=== PATIENT | male | born 1990 | race Caucasian/White ===

== ENCOUNTER 2017-02-05 19:54 | Emergency (ER) | payer SELFPAY ==
[2017-02-05] MEDS ORDERED: Morphine INJ* 2 MG/ML 1 ML SYRINGE IV ONE (21:27)
[2017-02-05] MEDS ORDERED: NS 0.9% 1000 ML* 1,000 ML IV ONE (21:27)
[2017-02-05] MEDS ORDERED: Metoclopramide IV* 5 MG/ML 2 ML VIAL IV ONE (21:29)
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
[2017-02-05 22:50] LABS: ALT 54 U/L (7-52); Albumin 3.5 g/dL (3.2-5.2); Alkaline Phosphatase 333 U/L (34-104); BUN/Creatinine Ratio 17.4 (8-20); Blood Urea Nitrogen 12 mg/dL (6-24); C Reactive Protein 3.52 mg/L (< 5.00); CO2 Carbon Dioxide 28 mmol/L (22-32); Chloride 98 mmol/L (101-111); EGFR African American 181.2 (>60); EGFR Non-African American 140.9 (>60); Globulin 3.8 g/dL (2-4); Glucose 102 mg/dL (70-100); Lipase < 10 U/L (11.0-82.0); Sodium 132 mmol/L (133-145); Total Protein 7.3 g/dL (6.4-8.9)
[2017-02-05 23:03] LABS: AST 32 U/L (13-39); Anion Gap 6 mmol/L (2-11); Potassium 4.3 mmol/L (3.5-5.0)
[2017-02-05] MEDS ORDERED: Ondansetron ODT TAB* 4 MG PO ONE (23:08)
[2017-02-05] MEDS ORDERED: Metoclopramide IV* 5 MG/ML 2 ML VIAL ONE (23:33)
[2017-02-05] MEDS ORDERED: Morphine INJ* 10 MG/ML 1 ML SYRINGE SUBCUT ONE (23:33)
[2017-02-06 00:31] LABS: Hematocrit 32 % (42-52); Hemoglobin 9.9 g/dl (14.0-18.0); Mean Corpuscular HGB Conc 31 g/dl (31-36); Mean Corpuscular Hemoglobin 19 pg (27-31); Mean Corpuscular Volume 63 fL (80-94); Mean Platelet Volume 9 um3 (7.4-10.4); Red Blood Count 5.08 10^6/ul (4.0-5.4); Red Cell Distribution Width 18 % (10.5-15); White Blood Count 18.9 10^3/ul (3.5-10.8)
[2017-02-06 00:34] LABS: Add Diff/Slide Review? Slide Review Added; Comments Flag Yes
[2017-02-06] MEDS ORDERED: oxyCODONE/Acetamin 5/325 MG* TAB PO ONE (02:51)
[2017-02-06] MEDS ORDERED: Prochlorperazine SUPP* 25 MG SUPP PR ONE (02:51)
[2017-02-06 03:14] VITALS: BP 135/79
--- NOTE | 2017-02-06 08:10 | RAD ---
CLINICAL HISTORY: Diffuse abdominal pain in a patient with a history of Crohn's disease. COMPARISON: None TECHNIQUE: Noncontrast CT examination of the abdomen and pelvis from the lung bases through the initial tuberosities. FINDINGS: VISUALIZED LUNG BASES: Evaluation of the lung is limited by respiratory motion artifact. The lungs appear hyperaerated. At the visualized lower lingula of the left upper lobe there is patchy nodular density (image 4 of 93). There is no large pleural effusion. ABDOMEN AND PELVIS: Evaluation of the solid organs and vasculature is limited without intravenous contrast. The homogenously attenuating spleen is mildly enlarged measuring 13 cm and greatest cephalocaudal projection. The liver, pancreas and adrenal glands are grossly normal in appearance. The gallbladder is normal. At least one punctate calcification is noted in the right renal collecting system. There are are no signs of hydronephrosis. There is questionable thickening of the gastric wall (for example axial image 17). In the left upper quadrant there are top normal dilated loops of small bowel measuring up to 2.6 cm in diameter (image [id number]). In this same area there are air-fluid levels. There is no definite pathologic wall thickening, although this is difficult to discern the absence of oral contrast. Scattered enlarged mesenteric lymph nodes measuring up to 1 cm in short axis diameter (image 46 on the coronal images). There are no pathologically enlarged retroperitoneal lymph nodes. Surgical clips are noted in the right lower quadrant in the expected location of the appendix and at the midline mesenteric root. The pelvic viscera is normal in appearance. The abdominal aorta and iliac arteries are normal in course and diameter. There are no sinister bone lesions. IMPRESSION: 1. Evaluation of the gastrointestinal tract is limited without oral or IV contrast. There appears to be signs of gastroenteritis involving the stomach and proximal small bowel. 2. Patchy nodular infiltrate at the visualized portion of the left upper lobe lingula could represent inflammatory or infectious disease. 3. Additional nonacute-appearing and postoperative findings as described by the report.
== END 2017-02-06 03:15 | disposition home or self-care (01) ==
LOC: ED 19:54
DX: R10.12 Left upper quadrant pain (principal); R11.2 Nausea with vomiting, unspecified
CPT/HCPCS: 36415; 74176; 80053; 83690; 85025; 86140; 99285; A9270-GY; J2270

== ENCOUNTER 2017-06-23 11:43 | Emergency (ER) | payer OTHER ==
[2017-06-23] MEDS ORDERED: LORazepam INJ* 2 MG/ML 1 ML VIAL ONE (12:14)
[2017-06-23] MEDS ORDERED: LORazepam INJ* 2 MG/ML 1 ML VIAL IV PUSH ONE (12:36)
[2017-06-23] MEDS ORDERED: PROCHLORPERAZINE INJ 5 MG/ML 2 ML VIAL IV PRN (12:40)
[2017-06-23] MEDS ORDERED: PROCHLORPERAZINE INJ 5 MG/ML 2 ML VIAL ONE (12:47)
[2017-06-23 12:48] LABS: Hematocrit 37 % (42-52); Hemoglobin 12.5 g/dl (14.0-18.0); Mean Corpuscular HGB Conc 33 g/dl (31-36); Mean Corpuscular Hemoglobin 26 pg (27-31); Mean Corpuscular Volume 79 fL (80-94); Mean Platelet Volume 7 um3 (7.4-10.4); Red Blood Count 4.77 10^6/ul (4.0-5.4); Red Cell Distribution Width 16 % (10.5-15); White Blood Count 12.7 10^3/ul (3.5-10.8)
[2017-06-23 13:09] LABS: Albumin 3.7 g/dL (3.2-5.2); BUN/Creatinine Ratio 14.6 (8-20); Calcium 9.2 mg/dL (8.6-10.3); EGFR African American 147.2 (>60); EGFR Non-African American 114.5 (>60); Globulin 4.7 g/dL (2-4); Magnesium 1.9 mg/dL (1.9-2.7); Total Protein 8.4 g/dL (6.4-8.9)
[2017-06-23 13:41] LABS: TSH (Thyroid Stimulating Horm) 0.3 mcIU/mL (0.34-5.60)
[2017-06-23] MEDS ORDERED: KCL 20 MEQ/100 ML IVPREMIX* 20 MEQ/100 ML BAG IV ONE (14:21)
[2017-06-23 17:01] LABS: Urine Bacteria Absent (Absent); Urine Bilirubin Negative (Negative); Urine Glucose Negative (Negative); Urine Nitrite Negative (Negative)
[2017-06-23 17:11] LABS: Benzodiazepine Urine Screen Presumptive Positive (None Detect)
--- NOTE | 2017-06-23 17:40 | RAD ---
Indication: Cough. 2 views of the chest are reviewed. Emphysematous changes are noted. There is suggestion of some interstitial and alveolar densities in the right upper lobe and left lower lobe. No pleural fluid is identified. IMPRESSION: There appears to BE infiltrates in the right upper lobe and left base.
[2017-06-23] MEDS ORDERED: Meropenem 1 GM PREMIX(*) 1 GM/50 ML BAG IV ONE ×2 (18:12→19:23)
[2017-06-23] MEDS ORDERED: Azithromycin IV(*) 500 MG in NS 0.9% 250 ML* 250 ML IVPB ONE (18:12)
[2017-06-23] MEDS ORDERED: Clindamycin 600 MG IVPREMIX(* 600 MG/50 ML SDV IV ONE (18:14)
[2017-06-23] MEDS ORDERED: HYDROmorphone* 1 MG/ML 1 ML SYR IV SLOW PU ONE (19:04)
[2017-06-23] MEDS ORDERED: Aztreonam (*) 1 GM in NS 0.9% 50 ML* 50 ML IVPB ONE (19:24)
--- NOTE | 2017-06-23 19:51 | ED ---
Fatimah De La Garza Alfonso, scribed for Cuauhtemoc Preston MD on 06/23/17 at 1231 . Complex/Multi-Sys Presentation - HPI Summary HPI Summary: This patient is a 27 year old M BIBA from [facility] to [facility] from with a chief complaint of seizures since last night. Per medical record, he had approximately 6 seizures [employer]. Symptoms alleviated by versed 5 mg IM in ambulance. Pt having a seizure at time of evaluation. He possibly missed a recent dose of Levetiracetam. PMHx includes cystic fibrosis, and seizures. - History Of Current Complaint Chief Complaint: EDSeizure Time Seen by Provider: 06/23/17 11:50 Hx Obtained From: Patient, Medical Records Onset/Duration: Sudden Onset, Lasting Hours - Last night, Still Present Timing: Constant Severity Currently: Moderate Severity Initially: Moderate Alleviating Factor(s): versed 5 mg IM in ambulance Associated Signs And Symptoms: Positive: Other - Seizure. Related History: Similar Episode/Diagnosed As: - Seizure disorder. - Allergies/Home Medications Allergies/Adverse Reactions: Allergies Allergy/AdvReac Type Severity Reaction Status Date / Time NSAIDs Allergy Severe Airway Verified 02/05/17 20:07 Obstruction Ondansetron [From Zofran] Allergy Severe Airway Verified 02/05/17 20:07 Obstruction Adhesive Tape Allergy Mild Hives Verified 02/05/17 20:07 Cefepime Allergy Mild Hives Verified 02/05/17 20:07 Cephalosporins Allergy Mild Hives Verified 02/05/17 20:07 Levofloxacin [From Levaquin] Allergy Mild Hives Verified 02/05/17 20:07 Piperacillin [From Zosyn] Allergy Mild Hives Verified 02/05/17 20:07 Tazobactam [From Zosyn] Allergy Mild Hives Verified 02/05/17 20:07 Home Medications: Home Medications Albuterol HFA INHALER* [Ventolin HFA Inhaler*] 2 puff INH Q4H PRN 06/23/17 [ History Confirmed 06/23/17] Buprenorphine/Naloxone SL TAB* [Suboxone 8-2 mg SL TAB*] 1 tab.sl SL BID [History Confirmed 06/23/17] Dornase Alexander (Nf) [Pulmozyme (NF)] 1 mg INH DAILY 06/23/17 [History Confirmed ] Fluticasone-Salmeterol 500-50* [Advair Diskus 500-50*] 1 puff INH BID 06/23/17 [ History Confirmed 06/23/17] Gabapentin TAB(NF) [Neurontin 600 mg TAB(NF)] 1,200 mg PO TID 06/23/17 [History Confirmed 06/23/17] Levetiracetam [Keppra 500] 1,000 mg PO BID 06/23/17 [History Confirmed 06/23/17] Mirtazapine TAB* [Remeron TAB*] 30 mg PO BEDTIME 06/23/17 [History Confirmed 11/08] Mometasone NASAL (NF) [Nasonex (NF)] 2 spray BOTH NARES DAILY 06/23/17 [History Confirmed 06/23/17] Multivitamins/Minerals TAB* [Theragran/minerals TAB*] 1 tab PO DAILY 06/23/17 [ History Confirmed 06/23/17] Naproxen [Naproxen 500 mg] 500 mg PO BID 06/23/17 [History Confirmed 06/23/17] Omeprazole CAP* [Prilosec CAP* 20 MG] 20 mg PO DAILY 06/23/17 [History Confirmed 06/23/17] PARoxetine HCL TAB* [Paxil TAB*] 20 mg PO QAM 06/23/17 [History Confirmed ] Pancrelipase (NF) [Creon (NF)] 5 - 6 cap PO .WITH SNACKS 06/23/17 [History Confirmed 06/23/17] Pancrelipase (NF) [Creon (NF)] 8 cap PO TID WITH MEALS 06/23/17 [History Confirmed 06/23/17] Tobramycin 300 MG/5 ML INH(NF) [Jose(NF)] 300 mg INH BID 06/23/17 [History Confirmed 06/23/17] traZODone TAB* [Desyrel TAB*] 200 mg PO BEDTIME PRN 06/23/17 [History Confirmed 06/23/17] PMH/Surg Hx/FS Hx/Imm Hx Respiratory History: Reports: Hx Cystic Fibrosis GI History: Reports: Hx Crohn's Disease Neurological History: Reports: Hx Seizures - Cancer History Cancer Type, Location and Year: PANCREATIC CA - Surgical History Surgery Procedure, Year, and Place: APPENDECTOMY & PER PT. 3/4 OF COLON REMOVED @ SAME TIME 2004 Infectious Disease History: No Infectious Disease History: Denies: Traveled Outside the US in Last 30 Days - Family History Known Family History: Positive: Other - Mother -- HLD - Social History Alcohol Use: None Hx Substance Use: Yes Substance Use Type: Reports: Marijuana Hx Tobacco Use: Yes Smoking Status (MU): Former Smoker Review of Systems Negative: Fever Neurological: Other - Seizures All Other Systems Reviewed And Are Negative: Yes Physical Exam Triage Information Reviewed: Yes Vital Signs On Initial Exam: Initial Vitals Temp Pulse Resp BP Pulse Ox 99.1 F 121 26 120/74 95 06/23/17 11:51 06/23/17 11:51 06/23/17 11:51 06/23/17 11:51 06/23/17 11:51 Vital Signs Reviewed: Yes Appearance: Positive: Well-Appearing, No Pain Distress Skin: Positive: Warm, Skin Color Reflects Adequate Perfusion, Dry Head/Face: Positive: Normal Head/Face Inspection Eyes: Positive: Normal ENT: Positive: Normal ENT inspection Neck: Positive: Supple, Nontender Respiratory/Lung Sounds: Positive: Other - Course wet cough. Course upper respiratory sounds bilaterally. Cardiovascular: Positive: Tachycardia Abdomen Description: Positive: Nontender, Soft Bowel Sounds: Positive: Present Musculoskeletal: Positive: Normal Neurological: Positive: Normal, Sensory/Motor Intact, Alert, Oriented to Person Place, Time, CN Intact II-III Psychiatric: Positive: Affect/Mood Appropriate Diagnostics - Vital Signs Vital Signs Temp Pulse Resp BP Pulse Ox 06/23/17 11:51 99.1 F 121 26 120/74 95 - Laboratory Lab Results: Lab Results 06/23/17 06/23/17 06/23/17 Range/Units 12:31 12:31 12:31 WBC 12.7 H (3.5-10.8) 10^3/ul RBC 4.77 (4.0-5.4) 10^6/ul Hgb 12.5 L (14.0-18.0) g/dl Hct 37 L (42-52) % MCV 79 L (80-94) fL MCH 26 L (27-31) pg MCHC 33 (31-36) g/dl RDW 16 H (10.5-15) % Plt Count 427 (150-450) 10^3/ul MPV 7 L (7.4-10.4) um3 Neut % (Auto) 74.5 (38-83) % Lymph % (Auto) 14.5 L (25-47) % Coke % (Auto) 10.0 H (1-9) % Eos % (Auto) 0.5 (0-6) % Baso % (Auto) 0.5 (0-2) % Absolute Neuts (auto) 9.5 H (1.5-7.7) 10^3/ul Absolute Lymphs (auto) 1.8 (1.0-4.8) 10^3/ul Absolute Monos (auto) 1.3 H (0-0.8) 10^3/ul Absolute Eos (auto) 0.1 (0-0.6) 10^3/ul Absolute Basos (auto) 0.1 (0-0.2) 10^3/ul Absolute Nucleated RBC 0 10^3/ul Nucleated RBC % 0 INR (Anticoag Therapy) 1.14 H (0.89-1.11) Sodium 131 L (133-145) mmol/L Potassium 3.0 L (3.5-5.0) mmol/L Chloride 94 L (101-111) mmol/L Carbon Dioxide 28 (22-32) mmol/L Anion Gap 9 (2-11) mmol/L BUN 12 (6-24) mg/dL Creatinine 0.82 (0.67-1.17) mg/dL Est GFR ( Amer) 147.2 (>60) Est GFR (Non-Af Amer) 114.5 (>60) BUN/Creatinine Ratio 14.6 (8-20) Glucose 80 (70-100) mg/dL Lactic Acid (0.5-2.0) mmol/L Calcium 9.2 (8.6-10.3) mg/dL Magnesium 1.9 (1.9-2.7) mg/dL Total Bilirubin 1.00 (0.2-1.0) mg/dL AST 95 H (13-39) U/L ALT 214 H (7-52) U/L Alkaline Phosphatase 513 H (34-104) U/L Total Creatine Kinase 51 (10-223) U/L Total Protein 8.4 (6.4-8.9) g/dL Albumin 3.7 (3.2-5.2) g/dL Globulin 4.7 H (2-4) g/dL Albumin/Globulin Ratio 0.8 L (1-3) TSH 0.30 L (0.34-5.60) mcIU/mL Urine Color Urine Appearance Urine pH (5-9) Ur Specific Pullman (1.010-1.030) Urine Protein (Negative) Urine Ketones (Negative) Urine Blood (Negative) Urine Nitrate (Negative) Urine Bilirubin (Negative) Urine Urobilinogen (Negative) Ur Leukocyte Esterase (Negative) Urine WBC (Auto) (Absent) Urine RBC (Auto) (Absent) Ur Squamous Epith Cells (Absent) Urine Bacteria (Absent) Urine Glucose (Negative) Urine Opiates Screen (None Detect) Ur Barbiturates Screen (None Detect) Ur Phencyclidine Scrn (None Detect) Ur Amphetamines Screen (None Detect) U Benzodiazepines Scrn (None Detect) Urine Cocaine Screen (None Detect) U Cannabinoids Screen (None Detect) 06/23/17 06/23/17 06/23/17 Range/Units 12:31 16:45 16:45 WBC (3.5-10.8) 10^3/ul RBC (4.0-5.4) 10^6/ul Hgb (14.0-18.0) g/dl Hct (42-52) % MCV (80-94) fL MCH (27-31) pg MCHC (31-36) g/dl RDW (10.5-15) % Plt Count (150-450) 10^3/ul MPV (7.4-10.4) um3 Neut % (Auto) (38-83) % Lymph % (Auto) (25-47) % Coke % (Auto) (1-9) % Eos % (Auto) (0-6) % Baso % (Auto) (0-2) % Absolute Neuts (auto) (1.5-7.7) 10^3/ul Absolute Lymphs (auto) (1.0-4.8) 10^3/ul Absolute Monos (auto) (0-0.8) 10^3/ul Absolute Eos (auto) (0-0.6) 10^3/ul Absolute Basos (auto) (0-0.2) 10^3/ul Absolute Nucleated RBC 10^3/ul Nucleated RBC % INR (Anticoag Therapy) (0.89-1.11) Sodium (133-145) mmol/L Potassium (3.5-5.0) mmol/L Chloride (101-111) mmol/L Carbon Dioxide (22-32) mmol/L Anion Gap (2-11) mmol/L BUN (6-24) mg/dL Creatinine (0.67-1.17) mg/dL Est GFR ( Amer) (>60) Est GFR (Non-Af Amer) (>60) BUN/Creatinine Ratio (8-20) Glucose (70-100) mg/dL Lactic Acid 1.8 (0.5-2.0) mmol/L Calcium (8.6-10.3) mg/dL Magnesium (1.9-2.7) mg/dL Total Bilirubin (0.2-1.0) mg/dL AST (13-39) U/L ALT (7-52) U/L Alkaline Phosphatase (34-104) U/L Total Creatine Kinase (10-223) U/L Total Protein (6.4-8.9) g/dL Albumin (3.2-5.2) g/dL Globulin (2-4) g/dL Albumin/Globulin Ratio (1-3) TSH (0.34-5.60) mcIU/mL Urine Color Linnette Urine Appearance Cloudy Urine pH 6.0 (5-9) Ur Specific Pullman 1.020 (1.010-1.030) Urine Protein 1+(30 mg/dl) H (Negative) Urine Ketones Trace H (Negative) Urine Blood Negative (Negative) Urine Nitrate Negative (Negative) Urine Bilirubin Negative (Negative) Urine Urobilinogen Negative (Negative) Ur Leukocyte Esterase Negative (Negative) Urine WBC (Auto) 1+(6-10/hpf) H (Absent) Urine RBC (Auto) Absent (Absent) Ur Squamous Epith Cells Present H (Absent) Urine Bacteria Absent (Absent) Urine Glucose Negative (Negative) Urine Opiates Screen None detected (None Detect) Ur Barbiturates Screen None detected (None Detect) Ur Phencyclidine Scrn None detected (None Detect) Ur Amphetamines Screen None detected (None Detect) U Benzodiazepines Scrn Presumptive positive H (None Detect) Urine Cocaine Screen Presumptive positive H (None Detect) U Cannabinoids Screen Presumptive positive H (None Detect) Result Diagrams: 06/23/17 12:31 06/23/17 12:31 Lab Statement: Any lab studies that have been ordered have been reviewed, and results considered in the medical decision making process. - Radiology CXR Radiology Interpretation Completed By: Radiologist - There appears to BE infiltrates in the right upper lobe and left base. ED physician has reviewed this radiology report and agrees. - EKG 1240 Cardiac Rate: Tachycardia - BPM 119 EKG Rhythm: Sinus Tachycardia ST Segment: Non-Specific Complex Multi-Symp Course/Dx Course Of Treatment: Mr. Crenshaw was brought in by the police. He had had a seizure last night and signed off from the ambulance but the police noticed that he had an outstanding warrant from [place] and took him into custody. He thinks that he missed 2 -3 doses of his Keppra 1000 mgs BID. He reportedly had 5-6 more seizures during the course of today and was brought in. Here he had a very convincing-looking generalized tonic-clonic seizure without elevation of his lactate or CPK, slight WBC elevation and no significant post-ictal period. He was seen By Dr. rUibe for neurology who felt that he should be loaded with Keppra and go home if he continued to remain seizure-free. He did so, however he continued to be tachycardic and began to C/O a cough and a CXR was read as bilateral infiltrates. He was loaded with azithromax, meropenem and aztreonam as well as NS. Dr. Love in [facility] agreed to the transfer as we have no pulmonology backup here this weekend. - Diagnoses Provider Diagnoses: Pneumonia, Sepsis, Breakthrough seizure - Physician Notifications Time Discussed With Above Provider: 12:25 Instructed by Provider To: Other - Consulted Dr. Uribe (neurology) who will see the patient in the ED. Consulted Dr. Chen (hospitalist) who accepts the patient for admission. Consulted Dr. Munson (ICU [facility]) who agrees to admit the transfer. - Critical Care Time Critical Care Time: 30-74 min Discharge - Discharge Plan Condition: Stable Disposition: TRANS HIGHER LVL OF CARE FAC Referrals: Non Staff,Doctor [Primary Care Provider] - The documentation as recorded by the Fatimah hopkins Alfonso accurately reflects the service I personally performed and the decisions made by me, Cuauhtemoc Preston MD.
[2017-06-23] MEDS ORDERED: HYDROmorphone* 1 MG/ML 1 ML SYR IV ONE (20:04)
[2017-06-23 20:56] VITALS: BP 121/82
--- NOTE | 2017-06-23 22:30 | CONS ---
NEUROLOGY CONSULT: DATE OF CONSULT: 06/23/17 REFERRING PROVIDER: Dr. Cuauhtemoc Preston. LOCATION: He is in the emergency room. CHIEF COMPLAINT: Seizures. HISTORY OF PRESENT ILLNESS: Jacek Crenshaw is a 27-year-old inmate brought in from the longterm for repetitive seizures. He reports he is having seizures since about [age] years of age. He has been on phenobarbital, Depakote, and most recently Keppra. He says he is on 1000 mg twice per day. When I asked him about when he was here in January and reportedly no medication, he says he has been on and off it over time. He says he follows with a neurologist in [place] and that is who prescribed his Keppra. He said that he has not had any seizures before yesterday for at least many weeks. However, he has not had Keppra yesterday or today. He says he is not taking any other medications currently. He says he never had an MRI of his brain before. He says nobody else in the family has seizures. He says that with specific questioning that he has both grand mal seizures as well as episodes where he stares off and is unresponsive. He sometimes notes a smell like burning tires before he has a seizure. There are no records other than one in the emergency room visit from last January available for review. PAST MEDICAL HISTORY: His past medical history is sketchy. He says that he has pancreatic insufficiency when I ask him about his feeding tube fistula. When he was in January, the reports say that he said that he had a history of Crohn's disease. He told Dr. Preston that he has cystic fibrosis. MEDICATIONS: He reports his only medication is Keppra 1000 mg twice per day and that he has not had it for 2 days. ALLERGIES: He is said to have allergies to ZOFRAN. Also, hives to CEPHALOSPORINS, LEVAQUIN, and ZOSYN. REVIEW OF SYSTEMS: Review of systems is notable for chronic back and leg pain. He suffers from anxiety. He says that he was arrested because of he was a fugitive from the [facility] for marijuana infraction. He has frequent nausea. PHYSICAL EXAM: He is thin and looks little dehydrated. Skin is without rashes , but multiple tattoos. Head is atraumatic. Oral mucosa is moist. There is no evidence of oral trauma either. Neck is supple. Heart is in regular rate and rhythm without murmurs. Lungs are clear anterolaterally. He has pain with the manipulation of his limbs. Neurologically, pupils react equally from 5 down to 2.5 mm. Funduscopic exam reveals sharp discs bilaterally. Eye movements are normal. There is no ptosis. Visual burks are full to confrontation. Facial musculature is symmetric. Facial sensation to light touch is intact. Palate and tongue appear normal and there is no dysarthria. He has not bitten his tongue. Motor exam reveals normal strength proximally and distally in upper and lower extremities with wincing and pain behavior with testing all limbs. Sensory exam is intact to light touch in all limbs. Reflexes are symmetric and plantar responses are flexor. He is alert and oriented and an inconsistent historian. Language is simple, but fluent. LABORATORY DATA: Includes a CBC with an elevated white blood cell count at 12.7. It was 18.9 when he was here in January. Hemoglobin is 12.5 and MCV is 79. Platelet count is 427,000. INR is borderline elevated at 1.14. Chemistry profile is notable for sodium of 131 and potassium of 3.0. Creatinine kinase today is just 51. Lactic acid is normal at 1.8. Alkaline phosphatase is quite elevated at 513, was 333 last January. ALT was elevated to 214, it was 54 back in January. 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 He reportedly had over 4 seizures today and then a 4-minute convulsion in the emergency room and he had his lactic acid and CPK are normal. Also, according to my conversation with Dr. Preston, he rapidly recovered mentally after prolonged convulsion further suggesting psychogenic episodes. He clearly has secondary gain as an issue. On the other hand, he reports seizures since he was 10 and smelling burning rubber, so he may have epilepsy underlying it. He has not been getting his anticonvulsants, so I recommend giving him 1000 mg of IV Keppra and discharge him on 1000 mg twice per day. If he presents again with seizures, then we will need to possibly admit him for overnight epilepsy monitoring. If it settles down, however, I think he can be discharged on his usual anticonvulsants as it sounds that he was stable when he was getting them. [id number]/[facility] #: [id number] [facility]
--- NOTE | 2017-06-24 02:25 | CONS ---
CONSULTATION REPORT: DATE OF CONSULT: 06/23/17 - EMERGENCY DEPT ATTENDING PHYSICIAN WHILE IN THE HOSPITAL: Martín Amato MD (report dictated by Kenneth Mason NP). PRIMARY CARE PROVIDER: Unknown. REASON FOR MEDICAL CONSULTATION: Evaluation for possible admission into the hospital. CHIEF COMPLAINT: 1. Seizure. 2. Shortness of breath. HISTORY OF PRESENT ILLNESS: Mr. Crenshaw is a 27-year-old male patient who was recently incarcerated last night for outstanding warrant apparently, but has a history of Crohn's, CF, diabetes, seizures. He sees a Dr. Fontanez in [place] for Pulmonology and apparently according to the patient, he was in [place] for about 1 month's time and he was just discharged, he says, 7 to 10 days ago. He says that since being discharged, he has been having worsening cough, he has been more short of breath. He has been having chills and rigors. He has been unable to get comfortable. He has been having pain in his back. He feels he has been coughing up mucopurulent-type sputum, it has been brown at times. He has just been feeling very ill, weak and tired. He came into our ER today because of this and because of the seizure, he says he was at [facility] and he was going to the medical andino when he, all of a sudden, had an episode where he went down. He does not recall this. Next this he knew, there was a standing over him. He was concerned that he may have had a seizure, so he was brought to the hospital here. On the ED, it was noted he was tachycardic. He is tachypneic. His O2 saturations were in the lower 90s and he had a white count and an x-ray that was concerning for bilateral infiltrates, so we were asked to evaluate for admission. PAST MEDICAL HISTORY: His past medical history is significant for: 1. Cystic fibrosis. 2. Crohn's. 3. Diabetes. 4. Seizures. PAST SURGICAL HISTORY: 1. He has had a hernia repair. 2. Partial colectomy. 3. G-tube was placed and then now taken out. 4. He has history of an appendectomy. FAMILY HISTORY: Reviewed and noncontributory. SOCIAL HISTORY: He does not smoke. He does drink. He drank about 2 days ago. Surrogate decision maker is his mother. HOME MEDICATIONS: According to the list that we were able to obtain include: 1. Multivitamin 1 tablet daily. 2. Trazodone 200 mg at bedtime. 3. Creon 8 capsules p.o. t.i.d. with meals. 4. Creon 5 to 6 capsules p.o. with snack. 5. Omeprazole 20 mg p.o. daily. 6. Advair 1 puff inhaled b.i.d. 7. Nasonex 2 sprays both nares daily. 8. Tobramycin 300 mg inhaled b.i.d. 9. Naproxen 500 mg p.o. b.i.d. 10. Gabapentin 1200 mg p.o. t.i.d. 11. Suboxone 1 tablet sublingual b.i.d. 12. Ventolin 2 puffs inhaled every 4 hours. 13. Paxil 20 mg p.o. q.a.m. 14. Remeron 30 mg p.o. at bedtime. 15. Pulmozyme 1 mg inhaled daily. 16. Keppra 1000 mg p.o. b.i.d. ALLERGIES: His allergies to medications include ZOSYN, LEVAQUIN, CEPHALOSPORIN , CEFEPIME, ZOFRAN, ADHESIVE TAPE, and NSAIDS. REVIEW OF SYSTEMS: He does admit to having chills. He denies any significant weight change. He denied having any double vision. He denied having any ear discharge. He denied having any rhinorrhea. He does admit to having a sore throat. He does admit to having a cough and he does admit to having shortness of breath, particularly with exertion. He denies having any abdominal discomfort. He does state that it hurts to take a deep breath. He admits to having lower back pain. Denies any dysuria. No frequency. There was a loss of consciousness with questionable seizure today. Review of 14 systems completed, all others negative. PHYSICAL EXAM: Vital signs: Blood pressure 108/ 51 with a pulse of 115, respirations were 36, O2 sat 93%, temperature 99.1. General: At this time, Mr. Crenshaw is a 27-year-old male patient. He is sitting in the ER stretcher. He does appear to be in a moderate amount of respiratory distress. He is awake and he is alert. HEENT: Head atraumatic, normocephalic. Eyes, EOMs are intact. Sclerae anicteric and not pale. Throat , oral mucosa appears to be moist. No oropharyngeal erythema. Neck: Supple. Heart: Sounds S1, S2. He is tachycardic. Lungs were rhonchorous and had crackles throughout. He had good expansion. Abdomen: Soft, flat, nontender. Bowel sounds are present. Extremities: Pulses are 2+ throughout. Able to move all 4 extremities with 5/5 strength. Neurologically, he is awake, alert and oriented x3. He is drowsy, but he will awaken to name. He is oriented x3. His speech is clear. Tongue is midline. Actuarial Mathematician were equal with no gross focal deficits. Skin is intact. DIAGNOSTIC STUDIES/LAB DATA: The labs revealed a WBC of 12.7, RBC of 4.77, hemoglobin 12.5, hematocrit 37, platelet count of 427. INR of 1.14. His sodium was 131, potassium was 3, chloride of 94, bicarb 28, BUN 12, creatinine 0.82, glucose 80, lactate 1.8, calcium 9.2, magnesium 1.9, total bili 1.0, AST 95, ALT 24, alk phos 513. Albumin of 3.7. Urine showed 1 protein, trace ketones, 1+ wbc. Toxicology was positive for benzodiazepines, cocaine, and cannabis. He did have a chest x-ray obtained today under my review. He does appear to have bilateral infiltrates in the lower lobes. Chest x-ray, impression: There appears to be infiltrates in the right upper lobe and left base. He did have an EKG obtained today, which showed a sinus tachycardia rate of [address] elevations or T-wave inversions noted. Old medical records were reviewed. ASSESSMENT AND PLAN: Mr. Crenshaw is a 27-year-old male patient coming into the ER today with complaints of an episode of seizure, presenting today with complaints of what appears to be a syncopal or seizure activity. We were asked to evaluate him for admission. Recommendations at this point are: 1. Cystic fibrosis exacerbation. Again at this point, the patient is tachypneic. He is tachycardic. Unfortunately, we do not have pulmonology coverage over the weekend. I did touch base with my general office dispatcher as the patient is going to require Vapotherm aggressive therapy and it was felt that he would be better served at a facility that had pulmonology coverage, given his CF and the specialized care that he requires and we have unavailable this weekend. Again, I did touch base with Dr. Preston and recommended transfer. In terms of seizures, again I would recommend continuing his Keppra. I would recommend now Vapotherm, broad-spectrum antibiotics in the form of meropenem and aztreonam, and getting him on azithromycin, nebulizer treatments, hypertonic saline, and pulmonary toileting while he is here in the ER and getting him transferred and I would recommend transfer again to a tertiary care center as soon as possible for further specialized care. TIME SPENT: Time spent on the consult was approximately 60 minutes; greater than half that time was spent [id number] with the patient obtaining my history and physical, other half the time was spent going over the plan of care with the patient. I discussed the plan of care with my attending, Dr. Amato, and our general office dispatcher ; they are in agreement. KENNETH MASON NP [id number]/CPS #: [id number] LD
== END 2017-06-23 20:55 | disposition short-term general hospital (02) ==
LOC: ED 11:43
DX: A41.9 Sepsis, unspecified organism (principal); J18.9 Pneumonia, unspecified organism; G40.909 Epilepsy, unspecified, not intractable, without status epilepticus; Z87.891 Personal history of nicotine dependence; E84.9 Cystic fibrosis, unspecified; Z85.07 Personal history of malignant neoplasm of pancreas
CPT/HCPCS: 36415; 71020; 80053; 80177; 80307; 81003; 81015; 82550; 83605; 83735; 84443; 85025; 85610; 86703; 93005; 96374; 96375; 99285; J0456; J0780; J1170; J2060; J3480